=== PATIENT | female | born 2000 | race Caucasian/White ===

== ENCOUNTER 2019-04-29 06:16 | Day surgery (SDC) | payer OTHER ==
[2019-04-29] MEDS: SOD CHLORIDE 0.9% 1,000 ML IV (07:26)
[2019-04-29] MEDS ORDERED: BUPIVACAINE 0.25% (MPF) 30 ML INJ (08:54)
[2019-04-29] MEDS ORDERED: MIDAZOLAM 1 MG/ML 2 ML INJ (08:57)
[2019-04-29] MEDS ORDERED: METOCLOPRAMIDE 10 MG INJ (08:57)
[2019-04-29] MEDS ORDERED: ROCURONIUM 50 MG INJ (08:57)
[2019-04-29] MEDS ORDERED: KETOROLAC 30 MG INJ (08:57)
[2019-04-29] MEDS ORDERED: GLYCOPYRROLATE 0.4 MG INJ (08:57)
[2019-04-29] MEDS ORDERED: ROPIVACAINE 0.5 % 30 ML VIAL (08:57)
[2019-04-29] MEDS ORDERED: PROPOFOL 200 MG INJ (08:57)
[2019-04-29] MEDS ORDERED: NEOSTIGMINE 3 MG/3 ML SYRINGE (08:57)
[2019-04-29] MEDS ORDERED: ONDANSETRON 4 MG INJ (08:57)
[2019-04-29] MEDS ORDERED: KETOROLAC 30 MG INJ IV (09:00)
[2019-04-29] MEDS ORDERED: FENTAnyl 50 MCG/ML VIAL IV ×2 (09:00)
[2019-04-29] MEDS ORDERED: OXYCODONE/ACETAMINOPHEN (5/325) TAB PO ×2 (09:00)
[2019-04-29] MEDS ORDERED: MIDAZOLAM 1 MG/ML 2 ML INJ IV (09:00)
[2019-04-29] MEDS ORDERED: HYDROmorphONE 1 MG/5 ML IV SYRINGE IV ×2 (09:00)
[2019-04-29] MEDS: CEFAZOLIN 2 GM/50 ML (PMX) 50 ML IVPB (09:16)
[2019-04-29] MEDS ORDERED: FENTAnyl 50 MCG/ML VIAL (09:29)
[2019-04-29] MEDS ORDERED: HYDROCODONE/APAP (5/325) TAB PO (10:00)
[2019-04-29] MEDS: MEPERIDINE 25 MG INJ IV (10:15)
[2019-04-29] MEDS: ONDANSETRON 4 MG INJ IV (10:16)
[2019-04-29] MEDS: FENTAnyl 50 MCG/ML VIAL IV (10:16)
[2019-04-29] MEDS: HYDROmorphONE 1 MG/5 ML IV SYRINGE IV ×2 (10:16→12:05)
[2019-04-29] MEDS: DIAZEPAM 5 MG/ML SYG IV (11:38)
[2019-04-29] MEDS: KETOROLAC 30 MG INJ IV (11:55)
[2019-04-29] MEDS ORDERED: ACETAMINOPHEN 1000MG/100ML IV 100 ML (13:35)
[2019-04-29] MEDS: ACETAMINOPHEN 1000MG/100ML IV 100 ML IVPB (13:36)
[2019-04-29] MEDS: DIPHENHYDRAMINE 50 MG INJ IV (13:37)
== END 2019-04-29 16:15 | disposition home or self-care (01) ==
LOC: SDS 06:16
DX: K80.10 Calculus of gallbladder with chronic cholecystitis without obstruction (principal); E66.9 Obesity, unspecified
CPT/HCPCS: 47562; 84703; 88304